=== PATIENT | male | born 1970 | race Asian ===

== ENCOUNTER 2024-01-29 08:54 | Emergency (ER) | payer BC, SELFPAY ==
[2024-01-29 08:55] VITALS: BP 118/80
[2024-01-29 09:07] VITALS: BMI 26.6
--- NOTE | 2024-01-29 09:28 | ED.SKININJ ---
HPI-Injury
<Sabine Bro, POSTBED STITCHER - Last Filed: 01/29/24 15:33>
General
Chief Complaint: Skin Problem
Source: patient
Exam Limitations: none
Time Seen by Provider: 01/29/24 08:58
Nursing documentation reviewed up to this point in time: agreed with
History of Present Illness-Injury
Initial Injury comments:
53 yo male with no pmhx states he developed rash left buttock, spread to left posterior thigh and then pubic area yesterday and today on shaft of penis. Denies fever but states he had chills 4 days ago. Dneies n/v. States rash is painful.
Went to yesterday and started on Valtrex 1 gm TID x 7 days and Acyclovir cream. Here today as rash is worse and wants to be sure of correct diagnosis
Past History
<Sabine Bro, POSTBED STITCHER - Last Filed: 01/29/24 15:33>
Past History
ED Past Medical History: None
ED Past Surgical History: None
Social History
Tobacco: Non-smoker
Alcohol: None
Drug: None
Personal:
Living: with family
Employment: Employed
Family History
Family History: Other (Noncontributory)
Review of Systems
<Sabine Bro, POSTBED STITCHER - Last Filed: 01/29/24 15:33>
Review of Systems
Allergies reviewed?: Yes
All Other Systems: ROS reviewed and negative except as documented in HPI and ROS
Constitutional: Denies fever
Respiratory: Denies trouble breathing
Cardiac: Denies chest pain
ABD/GI: Denies abdominal pain or nausea
: Denies dysuria or difficulty voiding
Musculoskeletal: Reports no symptoms
Skin: Reports other (painful rash left buttock, left posterior thigh and genital area)
Neurological: Reports no symptoms
Phy Exam
<Sabine Bro, POSTBED STITCHER - Last Filed: 01/29/24 15:33>
Physical Exam
Physical Exam:
GENERAL: No acute distress. A&Ox3.
CONSTITUTIONAL: Afebrile.
EYES: clear, conjunctivae normal
ENMT: moist mucus membranes, Pharynx nl
RESPIRATORY: Regular respirations, nonlabored, lungs clear.
CARDIOVASCULAR: Regular rate and rhythm, no murmurs, no rubs.
GI: Soft, nontender, normal BS
: pubic area and penile shaft with tiny vesicles on erythematous base, painful
MUSCULOSKELETAL: Moves with ease. Well perfused.
SKIN: Warm, dry, pink. Rash left buttock, posterior left thigh in clusters, reddened, some starting to scab over.
PSYCH: Normal mood and affect. Well kept, interactive and appropriate
NEUROLOGIC: Awake, alert and oriented. No focal neurological deficits
Course
<Sabine Bro, POSTBED STITCHER - Last Filed: 01/29/24 15:33>
Orders/Labs/Results
Orders:
Orders
01/29/24 09:27
Dexamethasone Pf [Decadron] 10 mg PO NOW STA
01/29/24 09:28
Hydrocodone 5/APAP 325 [Walton 5/325] 1 tablet PO NOW STA
Vital Signs
Initial and Last Documented VS:
Initial Vital Signs
Temp Pulse Resp BP Pulse Ox
36.8 C 93 16 118/80 98
01/29/24 08:55 01/29/24 08:55 01/29/24 08:55 01/29/24 08:55 01/29/24 08:55
Last Documented Vital Signs
Temp Pulse Resp BP Pulse Ox
36.8 C 93 16 118/80 98
01/29/24 08:55 01/29/24 08:55 01/29/24 08:55 01/29/24 08:55 01/29/24 08:55
<Chapincito Doyle MD - Last Filed: 01/29/24 18:29>
Orders/Labs/Results
Orders:
Orders
01/29/24 09:27
Dexamethasone Pf [Decadron] 10 mg PO NOW STA
01/29/24 09:28
Hydrocodone 5/APAP 325 [Walton 5/325] 1 tablet PO NOW STA
Vital Signs
Initial and Last Documented VS:
Initial Vital Signs
Temp Pulse Resp BP Pulse Ox
36.8 C 93 16 118/80 98
01/29/24 08:55 01/29/24 08:55 01/29/24 08:55 01/29/24 08:55 01/29/24 08:55
Last Documented Vital Signs
Temp Pulse Resp BP Pulse Ox
36.8 C 93 16 118/80 98
01/29/24 08:55 01/29/24 08:55 01/29/24 08:55 01/29/24 08:55 01/29/24 08:55
<Sabine Bro, POSTBED STITCHER - Last Filed: 01/29/24 15:33>
MDM/Problems Addressed
Differential Diagnosis Includes:
HSV 1, 2, Zoster, candidal rash
MDM/Problems Addressed:
53 yo male with no pmhx states he developed rash left buttock, spread to left posterior thigh and then pubic area yesterday and today on shaft of penis. Denies fever but states he had chills 4 days ago. Dneies n/v. States rash is painful.
Went to yesterday and started on Valtrex 1 gm TID x 7 days and Acyclovir cream. Here today as rash is worse and wants to be sure of correct diagnosis
Afebrile NAD
Exam is consistent with shingles at the C2 distribution.
Plan: Continue Valtrex, Acyclovir cream, add Prednisone and Walton for pain.
Topical Capsaicin or Lidoderm
F/U w PCP Return instructions reviewed
<Sabine Bro POSTBED STITCHER - Last Filed: 01/29/24 15:33>
*Critical Care Note
Total Time (30-74mins, 75-104mins- exclusive of procedures): Not Applicable
ED Attending Note
<Sabine Bro NP - Last Filed: 01/29/24 15:33>
-
Portions of this chart may have been created with voice recognition software.� Occasional wrong word or��sound alike� substitutions may have occurred due to the inherent limitations of voice recognition software.
<Chapincito Doyle MD - Last Filed: 01/29/24 18:29>
ED Attending Note
Patient seen and examined by attending physician: Yes
ED Attending Note:
I have seen and evaluated the patient with a czaz-on-cnxs encounter. I have spoken to the advance practicer provider and involved in the medical history, the physical exam, medical decision making.
Evaluation and management service: agree unless noted differently below.
Results interpretation: agree unless noted differently below.
Focused HPI: 53-year-old male with no chronic medical history presents to the emergency room for evaluation of rash. Patient reports that he noticed rash on Tuesday night initially just on the left buttock and it has progressed since then down
the posterior aspect of the left leg he has also noticed lesions at the base of the penis. Lesions are very painful to the touch and red. Initially went to urgent care and was diagnosed with shingles and was started on Valtrex but came here for
second opinion.
Physical exam: Awake alert not in distress. Vital signs normal. On physical exam he has vesicular rash in an S1 dermatomal distribution�he has lesions on the pubic mound just superior to the base of the penis as well as in the left buttock and mid
posterior medial left thigh.
Medical Decision Makin-year-old male presents with vesicular rash consistent with shingles restricted to S1 dermatomal distribution. He is already on valacyclovir. Added steroids, pain control�we discussed Tylenol/Motrin, Lidoderm, capsaicin
added Walton for breakthrough pain. Will follow-up with his PCP.
Discharge Plan
Departure
Patient Disposition: Home (Routine Discharge)
Date of Disposition: 01/29/24
Time of Disposition: 10:30
Patient with high blood pressure during this ER visit?: No
Condition: Good
Discharge Problem:
Shingles rash
Instructions: Shingles
Prescriptions:
New
prednisone 20 mg tablet
40 mg PO DAILY Qty: 6 0RF
hydrocodone-acetaminophen 5-300 mg tablet
1 tab PO Q6H PRN (Reason: Pain) Qty: 14 0RF
No Action
doxycycline hyclate 100 MG capsule
100 mg PO Q12 Qty: 38 0RF
Referrals:
Derik Bradford, DO [Family Provider] - As needed
Stand Alone Forms: Return to Work
Activity Restrictions/Additional Instructions:
As we discussed, I sent a prescription to your pharmacy for prednisone, a steroid to help decrease the inflammation. Starting tomorrow as you were given a dose of steroid here today
I also sent a prescription to your pharmacy for hydrocodone or Walton, this is a narcotic pain medication
Use ibuprofen 600 mg, with food, every 6 hours for mild to moderate pain and use the Walton as directed for worse pain.
Topical Capsaicin or Lidoderm may help
See your doctor in 10 to 14 days for recheck
Return here if you develop fever above 100.5 that is unrelieved with Tylenol or ibuprofen, nausea and vomiting, shaking chills or feeling sicker in any way
Interventions
Interventions:
*Risk Screen - Suicide Last Done: 01/29/24 09:08
*General Assessment Last Done: 01/29/24 09:08
*Neglect/Abuse Screening Last Done: 01/29/24 09:08
ED- Fall Risk Assessment Last Done: 01/29/24 10:52
*ED COVID-19 Vaccine History Last Done: 01/29/24 09:07
*Nursing Disposition Last Done: 01/29/24 10:52
ED-Skin Assessment Last Done: 01/29/24 10:51
Discharge Date and Time
Discharge Date/Time: 01/29/24 10:53
Print Language: LITHUANIAN
[2024-01-29] MEDS: NORCO 5/325 1 TABLET PO (09:46)
[2024-01-29] MEDS: DECADRON 10 MG PO (09:46)
== END 2024-01-29 10:53 | disposition home or self-care (01) ==
LOC: EMR 08:54
PROVIDERS: EMERGENCY PHYSICIAN Emergency Medicine; FAMILY PHYSICIAN Family Medicine
DX: B02.9 Zoster without complications (principal)
CPT/HCPCS: 99282